=== PATIENT | male | born 1990 | race Caucasian/White ===

== ENCOUNTER 2018-07-25 18:59 | Emergency (ER) | payer SELFPAY ==
[~2018-07-25] VITALS: Ht 177.8 cm; Wt 81.6 kg
[2018-07-25 19:09] VITALS: BP 131/80
--- NOTE | 2018-07-25 19:09 | NUR ---
PT BIBA BLS. TAKEN TO BED 9. [place] [employer] AT BEDSIDE
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
--- NOTE | 2018-07-25 19:10 | NUR ---
RECEIVED REPORT FROM CAREN FINN/ GEORGE.
--- NOTE | 2018-07-25 19:18 | NUR ---
Dr. Marrufo evaluating patient at bedside.
[2018-07-25] MEDS ORDERED: FLUMAZENIL 0.5 MG/5 ML VIAL IVP ONE ×3 (19:25→20:00)
[2018-07-25] MEDS ORDERED: NACL 0.9% 1,000 ML IV ONE ×2 (19:25→21:20)
[2018-07-25 20:10] LABS: BASOPHILS % (AUTO) 0.6 % (0.0-2.0); EOSINOPHILS # (AUTO) 0.1 K/uL (0-0.4); EOSINOPHILS % (AUTO) 1.6 % (0.0-4.0); HEMATOCRIT 43.8 % (36-52); HEMOGLOBIN 14.9 g/dL (12.0-18.0); LYMPHOCYTES # (AUTO) 1.3 K/uL (2.0-11.5); MEAN CORPUSCULAR HEMOGLOBIN 30 pg (27-31); MEAN CORPUSCULAR HGB CONC 34 g/dL (33-37); MEAN CORPUSCULAR VOLUME 88.9 fL (80-94); MONOCYTES # (AUTO) 0.4 K/uL (0.8-1.0); MONOCYTES % (AUTO) 6.5 % (1.7-9.3); NEUTROPHILS # (AUTO) 4.8 K/uL (1.8-7.7); NEUTROPHILS % (AUTO) 72.3 % (42.2-75.2); PLATELET COUNT (AUTO) 263 K/uL (140-450); RED BLOOD CELL COUNT(AUTO) 4.93 MIL/uL (4.20-6.10); RED CELL DISTRIBUTION WIDTH 12.9 % (11.6-13.7); WHITE BLOOD COUNT (AUTO) 6.6 K/uL (4.8-10.8)
[2018-07-25 20:24] LABS: BARBITURATE, URINE NEG. ng/ml (NEG <=200); BENZODIAZEPINE, URINE NEG. ng/mL (NEG <=200); CANNABINOID, URINE NEG. ng/mL (NEG <=50); COCAINE, URINE NEG. ng/mL (NEG <=300); OPIATE, URINE NEG. ng/mL (NEG <=2000); PHENCYCLIDINE SCREEN,URINE NEG. ng/mL (NEG <=25)
[2018-07-25 20:41] LABS: ALBUMIN 3.8 g/dL (3.4-5.0); ANION GAP 13.8 (8-16); ASPARTATE AMINOTRANSFERASE 20 U/L (15-37); CARBON DIOXIDE 27.1 mmol/L (21-32); CHLORIDE 103 mmol/L (98-107); CREATININE 0.9 mg/dL (0.7-1.3); GFR ARICAN-AMERICAN 129 mL/min (>90); GLUCOSE 125 mg/dL (74-106); POTASSIUM 3.9 mmol/L (3.5-5.1); SODIUM SERUM 140 mmol/L (136-145); TOTAL BILIRUBIN 0.6 mg/dL (0.0-1.0); UREA NITROGEN, BLOOD 17 mg/dL (7-18)
[2018-07-25 20:42] LABS: ACETAMINOPHEN < 0.5 ug/ml (10-30); SALICYLATE < 2.8 mg/dL (2.8-20.0)
--- NOTE | 2018-07-25 20:51 | NUR ---
PERFORMING GAIT TEST AT BEDSIDE WITH EMT, ERMD, AND [place] [employer] PRESENT. GAIT UNSTEADY.
--- NOTE | 2018-07-25 21:57 | NUR ---
PT TAKEN TO CT
--- NOTE | 2018-07-25 21:58 | NUR ---
Pat nicholas in [facility] - 07/25/18 at 2158 by EDMUND PT RETURN FROM CT
--- NOTE | 2018-07-25 21:58 | NUR ---
PT RETURNED FROM CT. TEST NOT PERFORMED
--- NOTE | 2018-07-25 22:00 | NUR ---
PT TAKEN TO CT WITH PD ESCORT
--- NOTE | 2018-07-25 22:11 | NUR ---
PT RETURN FROM CT
[2018-07-25 23:30] VITALS: BP 117/97
--- NOTE | 2018-07-25 23:30 | NUR ---
Patient discharged with v/s stable. Written and verbal after care instructions given and explained. Patient verbalized understanding. Escorted by police with steady gait. All questions addressed prior to discharge. Advised to follow up with PMD.
== END 2018-07-25 23:30 ==
LOC: MED 18:59
DX: F15.10 Other stimulant abuse, uncomplicated (principal); Z02.89 Encounter for other administrative examinations
CPT/HCPCS: 36415; 70450; 80053; 80305; 85025; 96361; 96374; 96375; 99284; G0480; G0482; J3490; J7030; 93005